=== PATIENT | female | born 1940 | race Caucasian/White ===

== ENCOUNTER → 2017-01-07 | Outpatient (CLI) | payer OTHER ==
[~2017-01-07] MED LIST: ASPI81TA21 PO; ATEN50TA PO; HYDR25TA4 PO; MULTTAB58 PO; SIMV5TAB2 PO; TAMO20TA47 PO; viactiv PO
[2017-01-07 14:05] VITALS: BP 134/75; PULSE 71; TEMP 36.8; O2SAT 97
--- NOTE | 2017-01-07 14:48 | Radiation Oncology Follow-Up ---
Radiation Oncology Follow-Up Date of Visit Jan 07, 2017. Reason For Visit Annual follow-up Radiation Completion Date 05/11/12 Diagnosis (1) Malignant neoplasm of upper-inner quadrant of female breast Status: Resolved Onset Date: 03/16/2012 Histology Subtype: ductal Stage: ll (A) Permanent Comment: Abnormal left breast mammogram Status post biopsy revealing infiltrating ductal carcinoma Estrogen receptor positive, progesterone receptor positive, HER-2/patricia negative Status post partial mastectomy and sentinel lymph node biopsy pathologic stage pTII [id number] Status post completion of radiation therapy 05/11/2012 received 6120 cGy Last Edited By: Luna Salinas on Jan 10, 2015 16:31 History of Present Illness Ms. Cuevas presented with abnormal mammograms in December 2011 biopsy confirmed an infiltrating ductal carcinoma in the left breast. The patient underwent a partial mastectomy and sentinel node biopsy on 01/30/2012. The primary measured 2.3 cm with an unexpected and additional tumor nodule measuring 0.5 cm. 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 The initial path report stated a positive margin but after discussion with Dr. Serrano the final margin was considered negative. The lesion was ER/ SC positive and HER-2/patricia negative with Ki-67 of 15%. Patient was treated with adjuvant radiation to the left breast and chest wall with boost from 03/23/2012 through 05/11/2012. She received a whole breast dose of 46.8 Gy and a boost of 14.4 Gy for a total dose of 61.2 Gy. The patient tolerated her treatment well and she continued to be followed by Dr. Serrano and by our department. She was started on tamoxifen her most recent follow-up with us was on 01/10/2015. At that time she continued to do well with no changes in her treated breast no tenderness or palpable masses or axillary adenopathy or arm swelling. Patient maintained up-to-date mammography without abnormalities. Interim History She's been doing well over this past year. She denies any changes to her breast. She's noted no masses or tenderness no change of the axilla. She's had no swelling of her arm. She is up-to-date on mammography. She recently saw Dr. Serrano. No abnormalities were noted. Follow-up mammography has been scheduled. She had a mammogram 03/10/2016 at [facility]. This showed stable mammogram without finding of malignancy. BI-RADS Category 2. Recommendation for 1 year follow-up. Allergies Coded Allergies: No Known Allergies (Unverified , 06/16/12) Home Medications Scheduled Aspirin Enteric Coated (Ecotrin Or Generic), 81 MG PO DAILY Atenolol (Tenormin), 50 MG PO DAILY Hydrochlorothiazide (Hctz), 25 MG PO DAILY Multiple Vitamin (Multivitamin), 2 TAB PO DAILY Simvastatin (Zocor), 5 MG PO QPM Tamoxifen (Nolvadex), 20 MG PO DAILY [viactiv], 2 TABLET PO DAILY Review of Systems Gastrointestinal: Symptoms: WNL Oral: Symptoms: No Problems Respiratory: Symptoms: WNL Urinary: Symptoms: WNL Comments: times 1 Skin: Symptoms: No Problems Breast: Right Upper Arm Measurement: 31.5 Right Mid Arm Measurement: 28.5 Right Wrist Measurement: 18.0 Left Upper Arm Measurement: 31.5 Left Mid Arm Measurement: 27.5 Left Wrist Measurement: 17.5 Arm Dominence: Right Patient Cosmetic Evaluation: Good Staff Cosmetic Evalaluation: Excellent Physical Exam Vital Signs Date Time Temp Pulse Resp B/P (MAP) Pulse Ox O2 Delivery O2 Flow Rate FiO2 01/07/17 14:05 36.8 71 18 134/75 97 Pain: Side: Bilateral Pain Location: None Patient Pain Scale: 0 - 10 Initial Pain Intensity: 0.0 Fatigue: None General Appearance: no apparent distress Eyes: normal inspection, EOMI ENT: normal ENT inspection, hearing grossly normal Neck: no adenopathy, thyroid normal Respiratory/Chest: lungs clear, no respiratory distress, no accessory muscle use Breast: Breast examination reveals well-healed incisions of the left breast. There are no masses or tenderness and no axillary adenopathy. There are no skin retractions or nipple changes. Using the [place] score cosmesis she has a good outcome. The right breast showed no masses or tenderness and no axillary adenopathy. Cardiovascular: regular rate, rhythm, no gallop, no murmur Extremities: no pedal edema Neurologic/Psychiatric: no motor/sensory deficits, alert, normal mood/affect Skin: warm/dry Additional Studies Mammography as reviewed above. Assessment & Plan Plan: Continue annual mammography. Continue breast self-examination. She has been discharged from Dr. Serrano's office. She'll continue follow-up with her primary care physician. A follow-up appointment with our office was not given. We discussed that she will continue to need annual examinations of her breast. This can be completed at her primary care physician's office. She may call our office if she has any questions or concerns we'll be happy to see her. Total Time In Follow-Up I spent 20 minutes speaking to the patient and performing examination. I spent 15 minutes reviewing information and completing this note. Copy To Devonte Serrano M.D.; Saul Harrison M.D. Problem Qualifiers (1) Malignant neoplasm of upper-inner quadrant of female breast: Estrogen receptor status: positive Laterality: left Qualified Codes: C50.212 - Malignant neoplasm of upper-inner quadrant of left female breast; Z17.0 - Estrogen receptor positive status [ER+]
== END | disposition home or self-care (01) ==
LOC: C.ONC 13:52
PROVIDERS: ATTEND Physician Assistant Medical
DX: Z08 Encounter for follow-up examination after completed treatment for malignant neoplasm (principal); Z92.3 Personal history of irradiation; Z85.3 Personal history of malignant neoplasm of breast